=== PATIENT | male | born 1990 | race Caucasian/White ===

== ENCOUNTER → 2020-12-14 | Outpatient (CLI) | payer BC ==
[~2020-12-14] MED LIST: ATOR20TA58 PO; BREX2TAB PO; BUPR300T92 PO; ERGO500027 PO; ESCITALOPRAM OX20 MG PO; OXYC-325 PO
== END ==
LOC: LAB 10:38
PROVIDERS: ATTEND Surgery
DX: Z01.812 Encounter for preprocedural laboratory examination (principal); L05.91 Pilonidal cyst without abscess; Z20.822 Contact with and (suspected) exposure to COVID-19
CPT/HCPCS: U0003; U0005

== ENCOUNTER 2020-12-17 07:30 | Day surgery (SDC) | payer BC ==
[~2020-12-17] VITALS: Ht 177.8 cm; Wt 138.0 kg
[~2020-12-17 07:30] MED LIST changes: +ACETAMINOPHEN 500 MG TABLET PO PRN; +BUPIVACAINE-EPI 0.25% 30 ML VIAL KIT. ONE; +HYDROmorphone 2 MG/ML VIAL IVP PRN; +IV RINGERS,LACTATED 1000ML 1,000 ML IV SCH; +MORPHINE SULFATE 2 MG/ML VIAL. IVP PRN; -OXYC-325 PO; +fentaNYL PF VIAL 100 MCG/2 ML VIAL IVP PRN
[2020-12-17] MEDS ORDERED: SUCCINYLCHOLINE 200 MG/10 ML VIAL. ONE (07:53)
[2020-12-17] MEDS ORDERED: GLYCOPYRROLATE 1 MG/5 ML VIAL. ONE (07:54)
[2020-12-17] MEDS ORDERED: PROPOFOL 10 MG/ML (20ML) VIAL. IV ONE (07:54)
[2020-12-17] MEDS ORDERED: LIDOCAINE 2% PF 5 ML VIAL. ONE (07:54)
[2020-12-17] MEDS ORDERED: BUPIVACAINE-EPI 0.25% 30 ML VIAL KIT. ONE (08:04)
[2020-12-17] MEDS ORDERED: fentaNYL PF VIAL 100 MCG/2 ML VIAL ONE (08:13)
[2020-12-17] MEDS ORDERED: SEVOFLURANE 31 TO 60 MINUTES. IH ONE (08:44)
[2020-12-17] MEDS ORDERED: DEXAMETHASONE SOD PHOS 4 MG/ML VIAL ONE (08:44)
[2020-12-17] MEDS ORDERED: ONDANSETRON PF 4 MG/2 ML VIAL. ONE (08:44)
--- NOTE | 2020-12-17 09:09 | PDOC4 ---
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 Procedure of pilonidal cystectomy was explained to the patient detail risk benefits were also discussed including bleeding infection alternatives to this procedure also discussed with patient who seemed to understand and gave both verbal and written consent to have the procedure performed. Patient was taken to the operating room placed in the supine position general anesthesia was initiated once patient was sleeping in bed he was then repositioned in the prone positioning his buttocks was prepped and draped usual sterile fashion was Betadine scrub and solution. An area around the pilonidal cyst was injected with quarter percent Marcaine with epinephrine elliptical incision was made 15 blade scalpel is carried down through the subcutaneous tissues using electrocautery right hemostasis down to the fascia. The pilonidal cyst and tissue are completely excised and sent for pathology. The wound was closed in 3 layers of deep layer of running 0 Vicryl more superficial layer was closed with a running 3-0 Vicryl and the skin was philomena pproximated with 3-0 nylon horizontal mattress sutures. Wound was dressed with 4 x 4's Medipore tape. Patient was then repositioned in the supine positioning awakened and extubated in the operating room taken to recovery in stable condition all sponge instrument needle counts listed as correct estimated blood loss 10 mL. GOPAL WYATT MD December 17, 2020 09:09
--- NOTE | 2020-12-17 09:10 | DISCH ---
DISCHARGE INSTRUCTIONS Condition on Discharge Condition on Discharge: Stable Activity After Discharge Activity Instructions for Disc: Avoid exertion Diet after Discharge Diet after Discharge: Regular Wound Incision Care Other wound/incision instructi: Meri shower in 24 hours Contacting the after DC Call your doctor for: If your condition worsens Follow-Up Follow up with: Dr. Wyatt in 2 weeks GOPAL WYATT MD December 17, 2020 09:10
[2020-12-17] MEDS ORDERED: PROCHLORPERAZINE 10 MG/2 ML VIAL. ONE (09:26)
[2020-12-17] MEDS: PROCHLORPERAZINE 10 MG/2 ML VIAL. IVP PRN ×2 (09:28→09:40)
[2020-12-17] MEDS ORDERED: OXYC-325 PO (09:55)
[2020-12-17 10:09] VITALS: BP 147/81
--- NOTE | 2020-12-21 14:07 | PATHOLOGY ---
[facility] Accession Number: [id number] . 01 Material submitted: . gluteal cleft - PILONDIAL CYST . 01 Clinician provided ICD-10: n . 01 Clinical history: . PILONDIAL CYSTECTOMY . 02 Diagnosis: Skin and subcutaneous tissue, pilonidal cystectomy: - Pilonidal abscess/sinus. (JPM:pit 12/21/2020) MBR 12/21/2020 0825 Local . 02 Electronically signed: . Herb Lane MD, Pathologist NPI- [id number] . 01 Gross description: . Received in formalin labeled "[place], [place] and pilonidal cyst". Received is an oriented elliptical excision of skin measuring 7.0 x 1.8 and excised to 3.0 cm. The skin surface is pale neumann with a previous incision measuring 3.8 cm in length by 0.2-0.5 centimeters in width. Also, the skin surface is a pink-neumann raised lesion measuring 0.7 x 0.7 x 0.3 cm. The surgical margin is inked black. Serial sectioning reveals a cystic space measuring 5.5 x 1.3 x 1.0 cm filled with hemorrhagic pink-neumann subcutaneous tissue and hair. The cyst is located 0.1 cm below the skin surface and 2.0 cm from the deepest black inked margin. The specimen is representatively submitted in cassettes A1 (section with skin surface lesion), A2 (section of cyst with hair), and A3 (uninvolved section).(BLJ; 12/17/2020) BLJ/BLJ 12/17/2020 1631 Local . 02 Pathologist provided ICD-10: L05.01 . 02 CPT . [id number] Specimen Comment: A courtesy copy of this report has been sent to [phone], [phone] Specimen Comment: [id number] Specimen Comment: Report sent to / DR DICKSON Performed at: 01 [facility] [address] [id number] MD Armando Alcantar MD Phone: [phone] Performed at: 02 [facility] [address] [place], [place] [id number] MD Herb Lane MD Phone: [phone]
== END 2020-12-17 10:32 | disposition home or self-care (01) ==
LOC: SURG 07:30
PROVIDERS: ATTEND Surgery
DX: L05.01 Pilonidal cyst with abscess (principal); E78.00 Pure hypercholesterolemia, unspecified; E66.9 Obesity, unspecified; G47.30 Sleep apnea, unspecified; F32.9 Major depressive disorder, single episode, unspecified; Z79.899 Other long term (current) drug therapy; Z98.890 Other specified postprocedural states; Z88.8 Allergy status to other drugs, medicaments and biological substances
CPT/HCPCS: 11770; A4213; A4930; A6253; A6402; J0330; J0780; J1100; J1956; J2405; J2704; J3010; J3490; 88304